=== PATIENT | female | born 1950 | race Caucasian/White ===

== ENCOUNTER 2016-10-06 11:34 | Outpatient (CLI) | payer MEDICARE | END 2016-10-06 11:52 | LOC: D.MAMMO 11:34 | DX: Z12.31 Encounter for screening mammogram for malignant neoplasm of breast (principal) ==

== ENCOUNTER 2016-11-09 12:22 | Outpatient (CLI) | payer MEDICARE, BC ==
[~2016-11-09] VITALS: Ht 154.9 cm; Wt 52.3 kg
[2016-11-09 12:47] VITALS: BP 138/76; Ht 154.9 cm; Wt 52.3 kg
== END 2016-11-09 13:23 | disposition home or self-care (01) ==
LOC: D.OPS 12:22
DX: M81.0 Age-related osteoporosis without current pathological fracture (principal)

== ENCOUNTER → 2017-05-10 10:03 | Outpatient (CLI) | payer MEDICARE, BC ==
[~2017-05-10] VITALS: Ht 154.9 cm; Wt 56.8 kg
[2017-05-10 11:41] VITALS: BP 127/69; Ht 154.9 cm; Wt 56.8 kg
== END | disposition home or self-care (01) ==
LOC: D.OPS 10:03
DX: M81.0 Age-related osteoporosis without current pathological fracture (principal)

== ENCOUNTER → 2017-09-30 14:09 | Outpatient (CLI) | payer MEDICARE, BC ==
[2017-05-10 11:41] VITALS: BMI 23.6
== END | disposition home or self-care (01) ==
LOC: D.CT 14:09
DX: R10.9 Unspecified abdominal pain (principal)

== ENCOUNTER → 2017-11-07 08:57 | Outpatient (CLI) | payer MEDICARE, BC ==
[2017-05-10 11:41] VITALS: BMI 23.6
== END | disposition home or self-care (01) ==
LOC: D.NM 08:57
DX: R10.11 Right upper quadrant pain (principal)

== ENCOUNTER → 2018-04-19 09:20 | Outpatient (CLI) | payer MEDICARE, BC ==
[2017-05-10 11:41] VITALS: BMI 23.6
== END | disposition home or self-care (01) ==
LOC: D.MRI 09:20
DX: M54.5 Low back pain (principal)

== ENCOUNTER 2019-01-23 14:00 | Outpatient (CLI) | payer MEDICARE, BC ==
[2017-05-10 11:41] VITALS: BMI 23.6
== END 2019-01-23 15:00 | disposition home or self-care (01) ==
LOC: D.MAMMO 14:00
PROVIDERS: ATTEND Emergency Medicine
DX: Z12.31 Encounter for screening mammogram for malignant neoplasm of breast (principal)

== ENCOUNTER → 2019-02-15 08:30 | Outpatient (CLI) | payer MEDICARE, BC ==
[2017-05-10 11:41] VITALS: BMI 23.6
== END | disposition home or self-care (01) ==
LOC: D.MAMMO 08:30
PROVIDERS: ATTEND Emergency Medicine
DX: R92.8 Other abnormal and inconclusive findings on diagnostic imaging of breast (principal)